=== PATIENT | female | born 1995 | race African-American/Black ===

== ENCOUNTER 2018-10-27 21:35 | Emergency (ER) | payer SELFPAY ==
[~2018-10-27] VITALS: Ht 160 cm; Wt 49.9 kg
[2018-10-27 22:24] VITALS: BP 147/79
--- NOTE | 2018-10-27 23:10 | NUR ---
PATIENT CALLED, NO ANSWER.
--- NOTE | 2018-10-27 23:57 | NUR ---
PER ADMITTING, PATIENT LEFT.
== END 2018-10-27 23:59 | disposition left against medical advice (07) ==
LOC: ER 21:40
DX: Z53.21 Procedure and treatment not carried out due to patient leaving prior to being seen by health care provider (principal)
CPT/HCPCS: A4606; Z7610